=== PATIENT | male | born 1985 | race Caucasian/White ===

== ENCOUNTER → 2017-08-03 | Outpatient (CLI) | payer OTHER ==
[~2017-08-03] MED LIST: ACIPHEX20 MG PO; MULTIVITAMIN1 EAC2 PO; NEXIUM40 MG PO; PROTONIX40 MG PO; ZESTRIL,PRINIVI10 MG PO
== END | disposition home or self-care (01) ==
LOC: NUC 07:10
DX: Z01.810 Encounter for preprocedural cardiovascular examination (principal); E66.01 Morbid (severe) obesity due to excess calories; R94.39 Abnormal result of other cardiovascular function study
CPT/HCPCS: 78452; 78999; 93017; A9500; J2785

== ENCOUNTER → 2017-09-09 | Outpatient (CLI) | payer OTHER ==
[~2017-09-09] VITALS: Ht 185.4 cm; Wt 172.7 kg
[~2017-09-09] MED LIST changes: +HYDROCHLOROTHIA25 MG PO; +LO-DOSE ASPIRIN81 M2 PO
== END | disposition home or self-care (01) ==
LOC: AMB 11:30
PROC: 0DB68ZX Excision of Stomach, Via Natural or Artificial Opening Endoscopic, Diagnostic (ICD-10-PCS; principal; 2017-09-09)
DX: K21.9 Gastro-esophageal reflux disease without esophagitis (principal); K29.50 Unspecified chronic gastritis without bleeding; I10 Essential (primary) hypertension; Z79.82 Long term (current) use of aspirin
CPT/HCPCS: 88305; 88342 TC; J2250; J3010

== ENCOUNTER 2017-10-19 21:15 | Inpatient (IN) | payer OTHER ==
[~2017-10-19] VITALS: Ht 185.4 cm; Wt 165.9 kg
[2017-10-20 15:56] VITALS: BP 150/85
[2017-10-20 17:36] VITALS: BP 144/85
[2017-10-20 23:29] VITALS: BP 152/70
[2017-10-21 03:40] VITALS: BP 132/66
[2017-10-21 07:43] VITALS: BP 158/70
[2017-10-21 07:55] LABS: HEMOGLOBIN 14.8 G/DL (12.5-16.6); MCH 27.9 PG (29.0-34.0); MCHC 32.9 G/DL (30.0-36.0); MCV 84.9 FL (86-99); PLATELET COUNT 217 K/uL (156-360); RBC DIS.WIDTH-CV 12.6 % (11.8-14.6); RBC DIS.WIDTH-SD 38.5 % (39-53); WHITE BLOOD COUNT 10.4 K/uL (4.1-10.2)
[2017-10-21 08:29] LABS: CHLORIDE 104 MEQ/L (99-109); CREATININE 0.7 MG/DL (0.6-1.3); GFR ESTIMATE (CALCULATED) > 59 mL/min/ (58.99-99999); GLUCOSE 124 mg/dL (70-99); MAGNESIUM 1.8 mg/dl (1.3-2.7); PHOSPHORUS 2.9 mg/dL (2.5-4.9); POTASSIUM 4.3 MEQ/L (3.7-5.4); SODIUM 139 MEQ/L (136-147); UREA NITROGEN (BUN) 10 mg/dL (9-23)
[2017-10-21 12:07] VITALS: BP 144/63
== END 2017-10-21 13:35 | disposition home or self-care (01) | DRG 620 ==
LOC: ENRESERV 21:15 → 2SOUTH 10-20 09:27 → ENRESERV 10-20 09:33 → 2SOUTH 10-20 10:22 → 2WEST 10-20 15:55
PROVIDERS: Surgery
PROC: 0DB64Z3 Excision of Stomach, Percutaneous Endoscopic Approach, Vertical (ICD-10-PCS; principal; 2017-10-20)
DX: E66.01 Morbid (severe) obesity due to excess calories (principal); Z68.42 Body mass index [BMI] 45.0-49.9, adult; I42.9 Cardiomyopathy, unspecified; K21.9 Gastro-esophageal reflux disease without esophagitis; I10 Essential (primary) hypertension
CPT/HCPCS: 80048; 82948; 83735; 84100; 85027; C9113; J0131; J0330; J0690; J1100; J1170; J1644; J1650; J2250; J2270; J2405; J2710; J2765; J3010; J3480; J7120; S0020